=== PATIENT | female | born 1980 | race Hispanic/Latino ===

== ENCOUNTER 2017-02-17 20:37 | Inpatient (IN) | payer OTHER ==
[2017-02-17] MEDS ORDERED: Sodium Chloride 0.9% 1,000 ML IV ONE (21:30)
--- NOTE | 2017-02-17 21:59 | C.PDOC ---
History Of Present Illness Referred by Dr. Travis Mroeno for evaluation of a right adnexal pain that began today. Patient was evaluated on Feb 12 by US had a 7 cm by 7 cm dermoid cyst. It also found demise at 7 weeks, 7 days. Denies fever, chills, vaginal bleeding, vaginal discharge, or abdominal pain. Time Seen by Provider: 02/17/17 21:20 Chief Complaint (Nursing): Abdominal Pain History Per: Patient History/Exam Limitations: no limitations Onset/Duration Of Symptoms: Hrs Current Symptoms Are (Timing): Still Present Severity: Mild Quality Of Discomfort: "Pain" Additional History Per: Patient Past Medical History Reviewed: Historical Data, Nursing Documentation, Vital Signs Vital Signs: Last Vital Signs Temp 98.7 F 02/18/17 01:03 Pulse 67 02/18/17 01:03 Resp 20 02/18/17 02:27 BP 102/68 02/18/17 01:03 Pulse Ox 100 02/18/17 04:54 Family History: States: Unknown Family Hx - Social History Hx Alcohol Use: No Hx Substance Use: No Review Of Systems Except As Marked, All Systems Reviewed And Found Negative. Constitutional: Negative for: Fever, Chills Gastrointestinal: Negative for: Abdominal Pain Genitourinary: Positive for: Other (Adnexal pain). Negative for: Vaginal Discharge, Vaginal Bleeding Physical Exam - Physical Exam Appears: Non-toxic, No Acute Distress Skin: Warm, Dry Head: Atraumatic, Normacephalic Cardiovascular: Rhythm Regular Respiratory: Normal Breath Sounds, No Rales, No Rhonchi, No Wheezing Gastrointestinal/Abdominal: Soft, No Tenderness Pelvic: No Vaginal Bleeding, No Vaginal Discharge, No Adnexal Tenderness Neurological/Psych: Oriented x3 ED Course And Treatment - Laboratory Results Result Diagrams: 02/17/17 22:49 02/17/17 22:49 Lab Interpretation: Abnormal (qhcg 40,904 (no prior to compare), O+) Urine POC: Positive O2 Sat by Pulse Oximetry: 100 (RA) Pulse Ox Interpretation: Normal - Other Rad pelvic US X-Ray: Read By Radiologist ( demise, + R ovarian dermoid cyst) Reevaluation Time: 00:56 Reassessment Condition: Improved - Physician Consult Information Outcome Of Conversation: d/w PMD, Dr. Pamela Moreno @ 2200 and 0100, ok to OB floor, plan for surgery in AM Medical Decision Making Medical Decision Making: Referred by Dr. Travis Moreno for right adnexal pain x1 day Disposition Doctor Will See Patient In The: Hospital Counseled Patient/Family Regarding: Studies Performed, Diagnosis - Disposition Disposition: HOSPITALIZED Disposition Time: 00:57 Condition: GOOD - Clinical Impression Clinical Impression: Missed , Dermoid cyst of ovary - Scribe Statement The provider has reviewed the documentation as recorded by the Scribmimi vaughan All medical record entries made by the Jonelleibmimi were at my direction and personally dictated by me. I have reviewed the chart and agree that the record accurately reflects my personal performance of the history, physical exam, medical decision making, and the department course for this patient. I have also personally directed, reviewed, and agree with the discharge instructions and disposition.
--- NOTE | 2017-02-17 22:02 | CP.PCM.HP ---
History of Present Illness - History of Present Illness History of Present Illness: 36 y/o ~ 9.5 wks GA LMP 12/11/2016 with abnormal increasing beta hcg 01/25 at 6400 with repeat beat 15,000+ on 02/01 with progesterone from 6-->5. pt seen in office on Saturday c/o fo inital spotting increasing in amount and passing blood clots with cramping. pt also c/o abdominal pain, on mid to left side localized no radiating, increasing in severity and intenity initally 09/19 now 01/20. Pt had US which was abnormla for IUP with no fhr measuring 6+ week adn 7cm complex mass in right adnexa suspcion for dermoid. pt reports long standing hx of dermoid cyst however was small and was being observed. CUrrentl pt is compling of severe pain in midline region, not alleviated with any medications. pt denies any lighteadness, dizzyness, CP, SOB, bowel or bladder complaints. OB: [employer]: hx of dermoid, denies hx abnormal pap, fiboirds, ovairn cyst, STI LMP 12/11/2016, IUD removed 3 monhts ago, Last Pepper 10/2016 PMH: denies PSH: denies FHX: denies SHX: negative etoh/tobacc/drugs NKDA Present on Admission - Present on Admission Any Indicators Present on Admission: No Review of Systems - Review of Systems All systems: reviewed and no additional remarkable complaints except - Constitutional Constitutional: As Per HPI - EENT Eyes: As Per HPI Ears: As Per HPI - Cardiovascular Cardiovascular: As Per HPI - Respiratory Respiratory: As Per HPI - Gastrointestinal Gastrointestinal: As Per HPI, Abdominal Pain - Genitourinary Genitourinary: As Per HPI - Reproductive: Female Reproductive:Female: As Per HPI Past Patient History - Infectious Disease Hx of Infectious Diseases: None - Past Medical History & Family History Past Medical History?: No Past Family History: Reviewed and not pertinent - Past Social History Smoking Status: Never Smoked Alcohol: None Drugs: Denies - CARDIAC Hx Cardiac Disorders: No Hx Angina: No Hx Atrial Fibrillation: No Hx Cardia Arrhythmia: No - PSYCHIATRIC Hx Substance Use: No - SURGICAL HISTORY Hx Surgeries: No Meds Allergies/Adverse Reactions: Allergies Allergy/AdvReac Type Severity Reaction Status Date / Time No Known Allergies Allergy Unverified 02/17/17 21:06 Physical Exam - Constitutional Appears: Well - Head Exam Head Exam: ATRAUMATIC, NORMAL INSPECTION - Eye Exam Eye Exam: EOMI, Normal appearance Pupil Exam: PERRL - ENT Exam ENT Exam: Mucous Membranes Moist, Normal Exam - Neck Exam Neck exam: Positive for: Normal Inspection - Respiratory Exam Respiratory Exam: Clear to Auscultation Bilateral, NORMAL BREATHING PATTERN - Cardiovascular Exam Cardiovascular Exam: +S1, +S2 - GI/Abdominal Exam GI & Abdominal Exam: Normal Bowel Sounds, Soft, Tenderness Additional comments: TTP throughout abdomen, no guarding, no reboudn tendnerness, no rigidty, +BS - Exam External exam: NORMAL EXTERNAL EXAM Additional comments: declined internal - Back Exam Back exam: NORMAL INSPECTION - Neurological Exam Neurological exam: Alert, Oriented x3 - Skin Skin Exam: Dry, Intact, Normal Color Results - Vital Signs Recent Vital Signs: Last Vital Signs Temp 98.3 F 02/17/17 21:03 Pulse 70 02/17/17 21:03 Resp 18 02/17/17 21:03 BP 127/88 02/17/17 21:03 Pulse Ox 100 02/17/17 21:03 - Labs Result Diagrams: 02/17/17 22:49 02/17/17 22:49 Assessment & Plan (1) Abnormal Assessment and Plan: 36 y/o with abnormal and hx of dermoid cyst in abdominal pain cannot rule out ovarian torsion vs ruptureed ovarian cyst 1. admit to yarn weight and strength tester Dr. Pamela Moreno 2. NPO, IVF LR @ 125cc/hr 3. Admission labs 4. US 5. To OR for Dx Laparascopy, ovarian cystectomy, possible open, suction dxc dpenidng on US findings 6. OR/Anestheia aware 7. hairston to gavity 8. abodminal prep pt seen and reexamined c/o of sevre pain over lower abodmen us reviwed pt consented for surgery r/b/a/i of lparascopy ovairan cystectomy, suctin dxc d/w paeitn consent singed and witnessed Status: Acute (2) Dermoid Status: Acute
[2017-02-17] MEDS ORDERED: Sodium Chloride 0.9% 1,000 ML ONE (22:36)
[2017-02-17 22:52] LABS: BASO % 0.3 % (0.0-2.0); EOS # 0.4 K/uL (0.0-0.7); EOS % 4.6 % (0.0-4.0); HEMATOCRIT 38.2 % (34.0-47.0); LYMPH # 3.2 K/uL (1.0-4.3); LYMPH % 39.5 % (20.0-40.0); MEAN CELL VOLUME 92.9 fL (81.0-99.0); MEAN CORPUSCULAR HEMOGLOBIN 32.3 pg (27.0-31.0); MEAN CORPUSCULAR HGB CONC 34.8 g/dL (33.0-37.0); MEAN PLATELET VOLUME 8.5 fL (7.2-11.7); MONO # 0.6 K/uL (0.0-0.8); RED CELL DISTRIBUTION WIDTH 12.1 % (11.5-14.5); WHITE BLOOD COUNT 8.2 K/uL (4.8-10.8)
[2017-02-17 23:05] LABS: CHLORIDE 99 mmol/L (98-107)
[2017-02-17 23:06] LABS: POTASSIUM 3.6 mmol/L (3.6-5.2); SODIUM 133 mmol/L (132-148)
[2017-02-17 23:08] LABS: ALB/GLOB RATIO 1.4 (1.0-2.1); ALKALINE PHOSPHATASE 53 U/L (38-126); AST/SGOT 23 U/L (14-36); BILIRUBIN,TOTAL 0.4 mg/dL (0.2-1.3); CARBON DIOXIDE 24 mmol/L (22-30); GFR AFRICAN-AMERICAN > 60; TOTAL PROTEIN 7.2 g/dL (6.3-8.3)
[2017-02-17 23:09] LABS: ALT/SGPT 28 U/L (9-52); BLOOD UREA NITROGEN 10 mg/dL (7-17); CALCIUM 8.8 mg/dl (8.6-10.4); GLUCOSE,RANDOM 90 mg/dL (65-105)
[2017-02-18 00:25] LABS: RBC URINE 19 /hpf (0-3); URINE BACTERIA RARE (<OCC); URINE BILIRUBIN NEGATIVE (NEGATIVE); URINE BLOOD 2+ (NEGATIVE); URINE COLOR Yellow (YELLOW); URINE GLUCOSE (UA) NORMAL (Normal); URINE KETONE NEGATIVE (NEGATIVE); URINE LEUKOCYTE ESTERASE 1+ Leu/uL (Negative); URINE PROTEIN NEGATIVE (NEGATIVE); URINE UROBILINOGEN NORMAL mg/dL (0.2-1.0); WBC URINE 9 /hpf (0-5)
--- NOTE | 2017-02-18 00:45 | US ---
EXAM: US ,Transabdominal and Transvaginal CLINICAL HISTORY: 36 years old, female; Condition or disease; Lmp or gestational age (weeks): Unknown lmp; Other: Missed ab , ov cyst; 2nd ; ; Patient HX: Prior 02-12-17 at [facility]; Additional info: Missed ab, ovarian cyst TECHNIQUE: Real-time transabdominal and transvaginal obstetrical ultrasound of the maternal pelvis and a first trimester with image documentation. Transvaginal imaging was used for better evaluation of the fetus and adnexa. COMPARISON: No relevant prior studies available. FINDINGS: Gestation: Single intrauterine gestation with a crown-rump length measuring 8.9 cm, corresponding to an approximate gestational age of 6 weeks and 6 days. Mean gestational sac size measures 2.1 cm, corresponding to an approximate gestational age of 6 weeks and 5 days. A well-formed yolk sac is detected. No cardiac activity is identified. Placenta/amniotic fluid: Cannot be adequately evaluated due to the early gestational age. Uterus/cervix: Cervix measures 3.6 cm, and is closed. Ovaries: The right ovary measures 7.9 x 5.4 x 7.7 cm. A complex cystic mass is detected within the right ovary measuring 6.4 cm in greatest dimension. No flow is detected. An echogenic mass is also identified within the right ovary measuring 3.2 cm in greatest dimension, likely a dermoid cyst. The left ovary is unremarkable in size measuring 3.1 x 1.4 x 2.2 cm. Normal flow is detected. A subcentimeter anechoic focus is detected measuring 10 mm in greatest dimension. Free fluid: No free fluid. IMPRESSION: Single intrauterine gestation with an approximate gestational age of 6 weeks and 6 days. No cardiac activity is detected. Right sided dermoid cyst. 6.4 cm complex cystic mass within the right ovary. 10 mm simple cyst within the left ovary. Please correlate these findings with the serum beta-hCG along with short term followup.
[2017-02-18] MEDS ORDERED: Lactated Ringer's 1,000 ML IV SCH (02:00)
[2017-02-18] MEDS ORDERED: Lactated Ringer's 1,000 ML IV ONE ×2 (06:30→07:05)
[2017-02-18] MEDS ORDERED: Propofol 10 mg/ml Inj (20 ML) ONE ×2 (06:39→08:01)
[2017-02-18] MEDS ORDERED: ceFAZolin IV 2 gm in Dextrose 1 GM/50 ML BAG IVPB ONE (06:43)
[2017-02-18] MEDS ORDERED: Oxytocin 10 Units/ml Inj ONE (07:05)
[2017-02-18] MEDS ORDERED: Neostigmine Methylsulfate 3mg/3ml Syringe IV ONE (07:37)
[2017-02-18] MEDS ORDERED: Bupivacaine HCl 0.25% PF (10 ml) Inj ONE (07:50)
[2017-02-18] MEDS ORDERED: Morphine 4 MG/ML VIAL ONE (07:59)
--- NOTE | 2017-02-18 08:30 | PCM.SURG1 ---
Surgeon's Initial Post Op Note - Surgeon's Notes Surgeon: Pamela Moreno MD Clipper Counters: Yusuf Loernz MD Type of Anesthesia: General Endo Pre-Operative Diagnosis: Missed , right dermoid ovarian cyst, pelvic pain Operative Findings: 10-12 week size uteurs, moderate products of conception, normal left ovary, enlarged 7cm right ovarian cyst with 80cc fluid yellow aspirated with cystectomy performed with cyst contentis incluidng hair. good hemostasis, normal tubes bilaterallly. Dr Yusuf Lorenz was high school assistant principal and present for entire case and essential in gaining laparascopic entry, holding camera, retraction, exposure, manipulations for obtainign hemostasis, performating cystectomyc, and closure. Post-Operative Diagnosis: same as above Operation Performed: Laparascopic right ovarian cystectomy (dermoid), Suction dilation and currettage Specimen/Specimens Removed: Right ovarian cyst (dermoid), products of conception Estimated Blood Loss: EBL {In ML}: 10 Blood Products Given: N/A Drains Used: No Drains Post-Op Condition: Good Date of Surgery/Procedure: 02/18/17 Time of Surgery/Procedure: 06:35
--- NOTE | 2017-02-18 08:36 | CP.PCM.DIS ---
Provider - Provider Date of Admission: 02/17/17 22:08 Attending physician: Pamela Moreno MD Time Spent in preparation of Discharge (in minutes): 30 Diagnosis - Discharge Diagnosis (1) Abnormal Status: Acute (2) Dermoid Status: Acute Hospital Course - Lab Results Lab Results: Most Recent Lab Values WBC 8.2 K/uL (4.8-10.8) 02/17/17 22:49 RBC 4.11 Mil/uL (3.80-5.20) 02/17/17 22:49 Hgb 13.3 g/dL (11.0-16.0) 02/17/17 22:49 Hct 38.2 % (34.0-47.0) 02/17/17 22:49 MCV 92.9 fL (81.0-99.0) 02/17/17 22:49 MCH 32.3 pg (27.0-31.0) H 02/17/17 22:49 MCHC 34.8 g/dL (33.0-37.0) 02/17/17 22:49 RDW 12.1 % (11.5-14.5) 02/17/17 22:49 Plt Count 226 K/uL (130-400) 02/17/17 22:49 MPV 8.5 fL (7.2-11.7) 02/17/17 22:49 Neut % (Auto) 48.6 % (50.0-75.0) L 02/17/17 22:49 Lymph % (Auto) 39.5 % (20.0-40.0) 02/17/17 22:49 [place] % (Auto) 7.0 % (0.0-10.0) 02/17/17 22:49 Eos % (Auto) 4.6 % (0.0-4.0) H 02/17/17 22:49 Baso % (Auto) 0.3 % (0.0-2.0) 02/17/17 22:49 Neut # 4.0 K/uL (1.8-7.0) 02/17/17 22:49 Lymph # 3.2 K/uL (1.0-4.3) 02/17/17 22:49 [place] # 0.6 K/uL (0.0-0.8) 02/17/17 22:49 Eos # 0.4 K/uL (0.0-0.7) 02/17/17 22:49 Baso # 0.0 K/uL (0.0-0.2) 02/17/17 22:49 PT 10.9 SECONDS (9.7-12.2) 02/17/17 22:49 INR 1.0 02/17/17 22:49 APTT 29 SECONDS (21-34) 02/17/17 22:49 Sodium 133 mmol/L (132-148) 02/17/17 22:49 Potassium 3.6 mmol/L (3.6-5.2) 02/17/17 22:49 Chloride 99 mmol/L (98-107) 02/17/17 22:49 Carbon Dioxide 24 mmol/L (22-30) 02/17/17 22:49 Anion Gap 14 (10-20) 02/17/17 22:49 BUN 10 mg/dL (7-17) 02/17/17 22:49 Creatinine 0.7 mg/dL (0.7-1.2) 02/17/17 22:49 Est GFR ( Amer) > 60 02/17/17 22:49 Est GFR (Non-Af Amer) > 60 02/17/17 22:49 Random Glucose 90 mg/dL (65-105) 02/17/17 22:49 Calcium 8.8 mg/dl (8.6-10.4) 02/17/17 22:49 Total Bilirubin 0.4 mg/dL (0.2-1.3) 02/17/17 22:49 AST 23 U/L (14-36) 02/17/17 22:49 ALT 28 U/L (9-52) 02/17/17 22:49 Alkaline Phosphatase 53 U/L (38-126) 02/17/17 22:49 Total Protein 7.2 g/dL (6.3-8.3) 02/17/17 22:49 Albumin 4.1 g/dL (3.5-5.0) 02/17/17 22:49 Globulin 3.0 gm/dL (2.2-3.9) 02/17/17 22:49 Albumin/Globulin Ratio 1.4 (1.0-2.1) 02/17/17 22:49 Beta HCG, Quant 17123.00 mIU/ML 02/17/17 22:49 Urine Color Yellow (YELLOW) 02/17/17 23:45 Urine Clarity Hazy (Clear) 02/17/17 23:45 Urine pH 5.0 (5.0-8.0) 02/17/17 23:45 Ur Specific Wilsey 1.006 (1.003-1.030) 02/17/17 23:45 Urine Protein Negative mg/dL (NEGATIVE) 02/17/17 23:45 Urine Glucose (UA) Normal mg/dL (Normal) 02/17/17 23:45 Urine Ketones Negative mg/dL (NEGATIVE) 02/17/17 23:45 Urine Blood 2+ (NEGATIVE) H 02/17/17 23:45 Urine Nitrate Negative (NEGATIVE) 02/17/17 23:45 Urine Bilirubin Negative (NEGATIVE) 02/17/17 23:45 Urine Urobilinogen Normal mg/dL (0.2-1.0) 02/17/17 23:45 Ur Leukocyte Esterase 1+ Denis/uL (Negative) H 02/17/17 23:45 Urine WBC (Auto) 9 /hpf (0-5) H 02/17/17 23:45 Urine RBC (Auto) 19 /hpf (0-3) H 02/17/17 23:45 Ur Squamous Epith Cells 7 /hpf (0-5) H 02/17/17 23:45 Urine Bacteria Rare (<OCC) 02/17/17 23:45 Blood Type O POSITIVE 02/17/17 22:49 Antibody Screen Negative 02/17/17 22:49 - Hospital Course Hospital Course: admitted to er with pain and bleeding us bloodwork s.p laparascopy ovarian cystectomy, suction dxc normal postoperative course Discharge Exam - Head Exam Head Exam: ATRAUMATIC, NORMAL INSPECTION - Eye Exam Eye Exam: Normal appearance - ENT Exam ENT Exam: Mucous Membranes Dry, Mucous Membranes Moist - Neck Exam Neck exam: Thyromegaly - Cardiovascular Exam Cardiovascular Exam: REGULAR RHYTHM - GI/Abdominal Exam GI & Abdominal Exam: Normal Bowel Sounds, Unremarkable - Extremities Exam Additional comments: negative haylie's sign Discharge Plan - Follow Up Plan Condition: GOOD Disposition: HOME/ ROUTINE Patient education suggested?: Yes
[2017-02-18] MEDS: HYDROmorphone 0.5 mg/0.5 ml ISec IVP PRN ×2 (09:02→09:22)
[2017-02-18] MEDS ORDERED: Oxycodone/Acetaminophen 5/325 mg Tab PO PRN ×3 (11:12→15:34)
--- NOTE | 2017-02-18 11:15 | OP ---
PROCEDURE DATE: 02/18/2017 SURGEON: Pamela Moreno MD CARTON REPAIRER: MD Dr. Yusuf Drake was assembler surgical garment, present for entire case and essential in gaining laparoscopic entry, retraction, holding camera, exposure, manipulation, for obtaining hemostasis, performing cystectomy and closure. TYPE OF ANESTHESIA: General endotracheal. PREOPERATIVE DIAGNOSES: Missed , right dermoid ovarian cyst, pelvic pain. POSTOPERATIVE DIAGNOSES: Missed , right dermoid ovarian cyst, pelvic pain. OPERATION PERFORMED: Laparoscopic right ovarian cystectomy, dermoid suction dilation and curettage. OPERATIVE FINDINGS: A 10- to 12-week size uterus, moderate amount of products of conception. Normal left ovary. Enlarged 7-cm right ovarian cyst with 80 mL of fluid aspirated with cystectomy performed with cyst contents including hair. Good hemostasis. Normal tubes bilaterally. SPECIMENS REMOVED: Right ovarian cyst, dermoid, products of conception. ESTIMATED BLOOD LOSS: 10 mL. BLOOD PRODUCTS: None. COMPLICATIONS: None. URINE OUTPUT: 150 mL. DESCRIPTION OF PROCEDURE: The patient was taken to the operating room where she was given general anesthesia. Once found to be adequate, she was placed on the operating table in dorsal lithotomy position with legs supported using stirrups. The patient was then prepped and draped in the usual sterile fashion. Time-out confirmed correct patient and correct procedure. Following this, a bimanual exam was performed with the above-mentioned findings. A Celeste catheter was then inserted into the urethra to drain the bladder. Sanchez retractor was placed in the anterior and posterior fornix of the vagina and the cervix was adequately visualized. Single-toothed tenaculum was placed on the anterior lip of the cervix, and the cervix was then sequentially dilated to allow for introduction of the 7-mm curved suction curette, which was advanced to the fundus. The suction was then activated and rotated 360 degrees three times until moderate amount of products of conception removed. Following this, a gentle curettage was done 360 degrees and the suction curette was then advanced one additional time until air bubbles were removed. Following this, all instruments were removed. There was good hemostasis at the single-toothed tenaculum puncture site and a sponge stick was then placed in the vagina. The lights were then lowered. The surgeon then re-gloved and attention was then turned to the abdomen. A 5-mm infraumbilical skin incision was made in the umbilical fold. The skin was then tented up using towel clips. A Veress needle was then inserted, placement was then confirmed with confirmation of normal saline and the gas was then insufflated with CO2 15 mmHg with a normal opening pressure. The abdomen was then insufflated and there was abdominal wall surveillance that noted with normal bowel and of the ovary as noted above. Following this, a 5-mm laparoscopic port was then inserted under direct visualization in the right lower quadrant and the bowel was then removed out of the operating field with a blunt probe. Following this, an 11-mm skin incision was made in the left lower quadrant and the laparoscopic port was then inserted under direct visualization. All ports were inserted and there was good hemostasis noted. A Jorge was then used to help retract the affected site on the right side and the uterus was then anteverted using the sponge stick in the vagina. The right ovary was mobilized out of the pelvis; following this, a needle was then inserted through the laparoscopic port to drain the fluid and approximately 80 mL of yellow fluid was then removed. The cyst had been dramatically decreased in size from 7 cm to 4. Following this, a 2-cm incision was made along the ovary using electrocautery and there was good hemostasis noted and it was dissected using hydrodissection and then using blunt dissection. Entry into the cyst was created using electrocautery. Suction was then used to drain the scant fluid that was remaining. During the gentle suction and manipulation, the cyst was able to be retracted from the healthy ovarian tissue. The ovarian bed was then irrigated and dried. There was good hemostasis noted. The cyst was then removed through the 10-mm laparoscopic port in the EndoCatch bag. Pelvis was then irrigated, and once hemostasis was assured, the cyst then removed through the EndoCatch bag; this was removed without difficulty. At this time, the pelvis was again copiously irrigated and dried, hemostasis was assured. All instruments were removed under direct visualization. The fascia was reapproximated and closed with UR-6 isolating the fascia with two S-retractors and the laparoscopic camera was still inserted and there was good closure of the fascia. All other instruments were removed. The abdomen was then desufflated. The skin was reapproximated and closed with 4-0 Monocryl suture, Steri-Strips were applied, bandage dressing. At the end of the procedure, all needle, sponge and instrument counts were noted to be correct x2. The patient tolerated the procedure well and was transferred to the recovery room in stable condition. Pamela Moreno MD
[2017-02-18] MEDS: Oxycodone/Acetaminophen 5/325 mg Tab PO PRN ×2 (15:55→20:18)
[2017-02-18] MEDS: Simethicone 80 mg Chewtab PO SCH ×2 (17:19→21:53)
[2017-02-18] MEDS ORDERED: Bisacodyl 5mg EC Tab PO ONE ×2 (19:01→20:30)
[2017-02-18] MEDS ORDERED: Cefpodoxime (Vantin) 200 mg Tab PO SCH (20:00)
[2017-02-19 00:23] VITALS: O2SAT 98
--- NOTE | 2017-02-19 00:23 | CON ---
COMPREHENSIVE UROLOGY CONSULTATION DATE: 02/18/2017. TIME OF CONSULTATION: Roughly 6:45 p.m. BRIEF HISTORY: The patient is a 36-year-old white female with a history of 12 week , who had a right ovarian cystectomy and D&C for miscarriage done this morning and went into acute urinary retention postop. Patient was originally straight cath with a 1000 mL residual urine and then straight cath again with 800 mL residual urine and the catheter was left indwelling to gravity drainage. Patient denies any prior history of any voiding problems, but she does give a history of chronic constipation and she currently has not had a bowel movements for at least 3 days. She previously denied any history of any dysuria, gross hematuria or renal colic. No history of kidney stones or kidney disease. She does have a strong family history of cancer, especially her grandparents which includes colon cancer. ALLERGIES: NO KNOWN ALLERGIES ON ANY MEDICATION. SOCIAL HISTORY: She has no history of tobacco use and is a very rare social drinker. PHYSICAL EXAMINATION: GENERAL: Today, patient is well-developed, well-nourished, slightly obese white female. She is alert and oriented. HEENT: Grossly within normal limits. NECK: Supple. Thyroid not palpable. ABDOMEN: Soft, nondistended, and nontender. No CVA tenderness. No suprapubic tenderness. EXTREMITIES: Patient has full range of motion of both upper and lower extremities. Celeste catheter is currently draining [place] urine well. LABORATORY DATA: Evaluation showed an urinalysis on 02/17/2017, which showed a yellow, cloudy, hazy, pH 5.0, specific gravity 1.006, protein negative, glucose normal, ketones negative, blood 2+, nitrites negative, bilirubin negative. Urobilinogen normal. Leucocyte esterase 1+, 9 WBC's, 19 RBC's and rare bacteria per high power field, suggestive of possible urinary tract infection. Patient denies any prior history of UTI or symptoms of UTI prior to this admission. CBC on 02/17/2017 showed a WBC count of 8.2, hemoglobin of 13.3, hematocrit 38.2, and platelet count of 226,000. Coag profile showed a PT of 10.9, INR 1.0, and PTT of 29. Chem profile showed a sodium of 133, potassium 3.6, chloride 99, CO2 of 24, BUN and creatinine of 10 and 0.7 respectively with GFR greater than 60. Random glucose is 90. Calcium 8.8. Total bilirubin 0.4, AST 23, ALT 28, alk phos 53, total protein 7.2, and beta-hCG was [id number]. DIAGNOSTIC IMPRESSION: 1. Acute urinary retention postop. 2. Possible urinary tract infection. 3. Chronic constipation. PLAN: This patient will be to send the urine for culture and sensitivity. Patient is being discharged home on doxycycline 100 mg b.i.d., and we can also add Flomax 0.4 mg daily. Treat the patient for her constipation with MiraLax. The Celeste catheter can be removed in the a.m. for a voiding trial and the patient does not want to do self intermittent catheterization at home, so if the patient does go into urinary retention again she will go home with a Celeste catheter and she can be seen in office followup in about 1 week. Jerome Byrnes MD
[2017-02-19] MEDS: Oxycodone/Acetaminophen 5/325 mg Tab PO PRN ×2 (00:35→04:42)
[2017-02-19] MEDS ORDERED: Influenza Vaccine 60 mcg/0.5 mL SYR (4YR UP) IM ONE (08:00)
[2017-02-19 08:13] VITALS: BP 97/68; PULSE 70; RESP 18; TEMP 98.9
--- NOTE | 2017-02-19 13:59 | CP.PCM.PN ---
Subjective - Date & Time of Evaluation Date of Evaluation: 02/18/17 Time of Evaluation: 17:00 - Subjective Subjective: s/p laparascopy ovarian cystectomy for 7cm dermoid for peelic pain and suction dxc for missed with unable to uriate post proceudre despise ivh adn lasix therap. ptreported sever pain over bladder. pt had intial striaght cath with 1000 clear yellow urine and wait soem hours afterwards adn was recatherinzed with hairston with 800cc urien output. Pt just reported pain not alledivate with pain meciain , partialy improved iwth catheriziat. pt denies any ddyru priro to procedreu but reprots constiapton, no irregular pain, fever, hcila, nauev, oting. Objective - Vital Signs/Intake and Output Vital Signs (last 24 hours): Temp Pulse Resp BP Pulse Ox 98.9 F 70 18 97/68 L 98 02/19/17 08:09 02/19/17 08:09 02/19/17 08:09 02/19/17 08:09 02/19/17 08:09 Intake and Output: 02/19/17 02/19/17 06:59 18:59 Intake Total 120 350 Output Total 500 Balance -380 350 - Labs Labs: 02/17/17 22:49 02/17/17 22:49 PT 10.9 SECONDS (9.7-12.2) 02/17/17 22:49 INR 1.0 02/17/17 22:49 APTT 29 SECONDS (21-34) 02/17/17 22:49 - Head Exam Head Exam: ATRAUMATIC, NORMAL INSPECTION - Eye Exam Eye Exam: EOMI Pupil Exam: NORMAL ACCOMODATION - ENT Exam ENT Exam: Mucous Membranes Moist - Respiratory Exam Respiratory Exam: Clear to Ausculation Bilateral, NORMAL BREATHING PATTERN - Cardiovascular Exam Cardiovascular Exam: +S1, +S2 - GI/Abdominal Exam GI & Abdominal Exam: Soft Additional comments: TTP over lbader, no guarding, no reboud tendnere, no rigidty, +BS no vaiganl bleeding icnsion cd/d/i dressing inpalced - Extremities Exam Extremities Exam: Normal Inspection - Back Exam Back Exam: NORMAL INSPECTION Additional comments: no cva b/l Assessment and Plan (1) Abnormal Status: Acute (2) Dermoid Status: Acute (3) Postoperative urinary retention Assessment & Plan: 1. Hairston cathether: strict ins/out 2. URolgoy cosnutl 3. Regaulr diet 4. Ambaution 5. Pain mangament prn Status: Acute
--- NOTE | 2017-02-19 14:02 | CP.PCM.PN ---
Subjective - Date & Time of Evaluation Date of Evaluation: 02/19/17 Time of Evaluation: 07:00 - Subjective Subjective: cathether spontaneuly expelled overngiht and pt spotnealu vodied. pt reprots revieivn stool softer with passign more faltus. pt reprot pain is better controlled radha any duria, urngeyc, fruegnehyc, blood in urine, back raul, feve ,r hcills, nasue,v ojitng Objective - Vital Signs/Intake and Output Vital Signs (last 24 hours): Temp Pulse Resp BP Pulse Ox 98.9 F 70 18 97/68 L 98 02/19/17 08:09 02/19/17 08:09 02/19/17 08:09 02/19/17 08:09 02/19/17 08:09 Intake and Output: 02/19/17 02/19/17 06:59 18:59 Intake Total 120 350 Output Total 500 Balance -380 350 - Labs Labs: 02/17/17 22:49 02/17/17 22:49 PT 10.9 SECONDS (9.7-12.2) 02/17/17 22:49 INR 1.0 02/17/17 22:49 APTT 29 SECONDS (21-34) 02/17/17 22:49 - Head Exam Head Exam: ATRAUMATIC, NORMAL INSPECTION - Eye Exam Eye Exam: Normal appearance - Neck Exam Neck Exam: Normal Inspection - Respiratory Exam Respiratory Exam: NORMAL BREATHING PATTERN - Cardiovascular Exam Cardiovascular Exam: +S1, +S2 - GI/Abdominal Exam GI & Abdominal Exam: Soft, Normal Bowel Sounds Additional comments: NT/ND no guaridng,no reboudn tendnere no rigdity icnsiocn c/d/i - Back Exam Back Exam: NORMAL INSPECTION Additional comments: no cva b/l Assessment and Plan (1) Abnormal Status: Acute (2) Dermoid Status: Acute (3) Postoperative urinary retention Assessment & Plan: now resolved, stable for d/c d/c home rto saturday f/u ruogloy 1 week precatins given Status: Acute
== END 2017-02-19 08:30 | disposition home or self-care (01) | DRG 770 ==
LOC: C.ER 20:37 → C.4D 22:08 → C.4M 02-18 01:25
PROVIDERS: ADMIT Obstetrics & Gynecology; ATTEND Obstetrics & Gynecology
PROC: 0UB04ZZ Excision of Right Ovary, Percutaneous Endoscopic Approach (ICD-10-PCS; 2017-02-18)
PROC: 10D17ZZ Extraction of Products of Conception, Retained, Via Natural or Artificial Opening (ICD-10-PCS; principal; 2017-02-18 06:30)
DX: O02.1 Missed abortion (principal); D27.0 Benign neoplasm of right ovary